=== PATIENT | female | born 1945 | race Caucasian/White ===

== ENCOUNTER 2022-03-12 08:47 | Day surgery (SDC) | payer MEDICARE, OTHER, SELFPAY ==
--- NOTE | 2022-03-11 13:27 | HO.ANESPROP2 ---
Documented by User: Erinn Rodarte NP 03/11/22 13:28 HPI - Anesthesia Eval Consult details Narrative: 76yo F for Colonoscopy PMFSH Past Medical History Medical History (Updated 03/12/22 @ 09:36 by Sherron Correa) Bilateral cataracts Breast cancer GERD (gastroesophageal reflux disease) Torsion of left ovary Surgical History Surgical History (Updated 03/12/22 @ 09:36 by Sherron Correa) H/O colonoscopy H/O endoscopy H/O left mastectomy History of partial hysterectomy Hx of cholecystectomy Hx of tonsillectomy Tubal ligation status Social History Social History Patient Tobacco Use Status: Former Tobacco user Quit Date: 1981 Tobacco use type: Cigarette Years Smoked: 20 Smoked in Last 30 Days: No Use of substances other than those prescribed or required for medical reasons: No Are you DNR?: No Advance Directives: No Advance Directives Information Provided: Yes Meds Allergies Allergy/AdvReac Type Severity Reaction Status Date / Time codeine Allergy Rash Verified 03/12/22 09:26 Home Medications Medication Instructions Recorded Confirmed Last Taken Type Calcium 500 1 cap PO DAILY 03/11/22 03/12/22 Unknown History Probiotic 1 tab PO DAILY 03/11/22 03/12/22 Unknown History Stool Softener 100 mg PO DAILY 03/11/22 03/12/22 Unknown History Vitamin C 500 mg PO DAILY 03/11/22 03/12/22 Unknown History Vitamin D3 25 mcg PO DAILY 03/11/22 03/12/22 Unknown History cyclosporine 0.05 % eye drops in a 1 drp ophthalmic (eye) BID 03/11/22 03/12/22 Unknown History dropperette (Restasis) famotidine 20 mg tablet 1 tab PO DAILY PRN acid reflux 03/11/22 03/12/22 Unknown History magnesium citrate 100 mg PO DAILY 03/11/22 03/12/22 Unknown History oregano oil 1,500 mg capsule 3,000 mg PO DAILY 03/11/22 03/12/22 Unknown History vitamin B complex 1 tab PO DAILY 03/11/22 03/12/22 Unknown History Exam Exam Date and Time: March 11, 20221326 Assessment and Plan Assessment Anesthesia Assessment: Chart Reviewed Documented by User: Jane Johnson MD 03/12/22 10:35 [facility] Past Medical History Medical History (Updated 03/12/22 @ 09:36 by Sherron Correa) Bilateral cataracts Breast cancer GERD (gastroesophageal reflux disease) Torsion of left ovary Family History Family history of problems with anesthesia: No Surgical History Surgical History (Updated 03/12/22 @ 09:36 by Sherron Correa) H/O colonoscopy H/O endoscopy H/O left mastectomy History of partial hysterectomy Hx of cholecystectomy Hx of tonsillectomy Tubal ligation status History of Problems with Anesthesia: No Social History Social History Patient Tobacco Use Status: Former Tobacco user Quit Date: 1981 Tobacco use type: Cigarette Years Smoked: 20 Smoked in Last 30 Days: No Use of substances other than those prescribed or required for medical reasons: No Are you DNR?: No Advance Directives: No Advance Directives Information Provided: Yes Meds Allergies Allergy/AdvReac Type Severity Reaction Status Date / Time codeine Allergy Rash Verified 03/12/22 09:26 Home Medications Medication Instructions Recorded Confirmed Last Taken Type Calcium 500 1 cap PO DAILY 03/11/22 03/12/22 Unknown History Probiotic 1 tab PO DAILY 03/11/22 03/12/22 Unknown History Stool Softener 100 mg PO DAILY 03/11/22 03/12/22 Unknown History Vitamin C 500 mg PO DAILY 03/11/22 03/12/22 Unknown History Vitamin D3 25 mcg PO DAILY 03/11/22 03/12/22 Unknown History cyclosporine 0.05 % eye drops in a 1 drp ophthalmic (eye) BID 03/11/22 03/12/22 Unknown History dropperette (Restasis) famotidine 20 mg tablet 1 tab PO DAILY PRN acid reflux 03/11/22 03/12/22 Unknown History magnesium citrate 100 mg PO DAILY 03/11/22 03/12/22 Unknown History oregano oil 1,500 mg capsule 3,000 mg PO DAILY 03/11/22 03/12/22 Unknown History vitamin B complex 1 tab PO DAILY 03/11/22 03/12/22 Unknown History Exam Airway Mallampati Class: II TM Dist: >3cm Partial: Upper Heart: rr Lungs: Cta Assessment and Plan Assessment Anesthesia Assessment: Anesthesia Plan Discussed Final Anesthetic Review Family History of Problems with Anesthesia: No History of Problems with Anesthesia: No NPO: Yes ASA Class: II Final Preanesthetic Review: No Changes in Pt Med Stat Patient Risk: Low Procedure Risk: Low Anesthetic Plan Anesthetic Plan: MAC: Disposition: Standard PACU
[2022-03-12 09:26] VITALS: BMI 24.7
[2022-03-12 09:29] VITALS: BP 149/70; PULSE 60; RESP 16; TEMP 36.6; O2SAT 100
[2022-03-12] MEDS: Lactated Ringers 1,000 ML 100 ML IVCONT (09:50)
--- NOTE | 2022-03-12 10:25 | MHC.SHP ---
Pre-Procedural Eval Section A Date of Service: 03/12/22 The patient is an INPATIENT: No Changes since office visit: No Cold of Flu in the past 2 weeks, No New Medical Problems, No Changes in Medication and No Patient answered all questions The History & Physical has been completed within 30 days and I have reviewed it.: Yes Section B Chief Complaint: Other specified symptoms and signs involving the d Allergies: Allergies Allergy/AdvReac Type Severity Reaction Status Date / Time codeine Allergy Rash Verified 03/12/22 09:26 Plan I have reviewed the history and physical and performed a pertinent physical examination on my patient. No changes have occurred unless specified.
--- NOTE | 2022-03-12 11:11 | PM.OP ---
Brief Operative Note Date of Service: 03/12/22 Pre-op diagnosis: change in bowels Post-op diagnosis: same Surgeon: Schuyler Cheng Anesthesia: MAC Was an Pediatric Neurologist used for this Procedure?: No Estimated blood loss (mL): 2 Pathology: other Condition: stable Disposition: PACU
[2022-03-12 11:14] VITALS: BP 98/35; PULSE 60; RESP 16; TEMP 36.7; O2SAT 97
[2022-03-12 11:29] VITALS: BP 131/59; PULSE 60; RESP 16; TEMP 36.7; O2SAT 97
--- NOTE | 2022-03-12 22:40 | OP_ITS ---
SURGEON: Schuyler Cheng MD INDICATIONS: Change in bowel habits. PREOPERATIVE DIAGNOSIS: POSTOPERATIVE DIAGNOSIS: PROCEDURE PERFORMED: Colonoscopy to the terminal ileum with biopsy. ESTIMATED BLOOD LOSS: COMPLICATIONS: ANESTHESIA: Monitored anesthesia care. ASSISTANTS: SPECIMENS: DESCRIPTION OF PROCEDURE: The procedure was performed on 03/12/2022. History and physical was performed and the risks and benefits of the procedure were explained to the patient. Informed consent was obtained. The patient was placed in the left lateral decubitus position. A digital rectal exam was performed and was found to be normal. The Olympus pediatric videocolonoscope was introduced into the rectum and advanced to the cecum without difficulty. The cecum was identified by transillumination, palpation, and identification of ileocecal valve. Examination was performed. The scope was removed. She tolerated the procedure well and was taken to recovery room in stable condition. FINDINGS: The terminal ileum was normal. Visualized colonic mucosa was normal. In the cecum, near the appendiceal orifice was a less than 5 mm sessile polyp, which was removed with biopsy forceps. The 2nd polyp measuring less than 5 mm was removed from the rectum with the biopsy forceps. No other polyps were identified. Retroflexed examination showed small internal hemorrhoids. The quality of the prep was good. Random sigmoid biopsies were obtained because of the patient's change in bowel habits. IMPRESSION: Colon polyps. RECOMMENDATION: Follow up with the biopsy results. MD VERONICA Thompson/[place] / [id number]
== END 2022-03-12 12:17 | disposition home or self-care (01) ==
PROVIDERS: PCP Nurse Practitioner Family; Visit Provider Internal Medicine Gastroenterology
PROC: 0DJD8ZZ Inspection of Lower Intestinal Tract, Via Natural or Artificial Opening Endoscopic (ICD-10-PCS; CPT 45378; principal; 2022-03-12 10:10)
DX: R19.8 Other specified symptoms and signs involving the digestive system and abdomen (principal); K63.5 Polyp of colon; K62.1 Rectal polyp; K64.8 Other hemorrhoids; K21.9 Gastro-esophageal reflux disease without esophagitis; Z79.899 Other long term (current) drug therapy; Z88.5 Allergy status to narcotic agent
CPT/HCPCS: 45380; 88305

== ENCOUNTER 2024-02-04 12:07 | Day surgery (SDC) | payer MEDICARE, OTHER, SELFPAY ==
[2024-02-02 11:41] VITALS: BMI 24.6
--- NOTE | 2024-02-03 08:33 | HO.ANESPROP2 ---
Documented by User: Erinn Rodarte NP 02/03/24 08:34 HPI - Anesthesia Eval Consult details Narrative: 78yo F for Upper Endoscopy PMFSH Past Medical History Medical History Allergic rhinitis Carpal tunnel syndrome Hyperlipidemia Osteopenia Osteoarthritis GERD (gastroesophageal reflux disease) Bilateral cataracts Torsion of left ovary Breast cancer Family History Family history of problems with anesthesia: No Surgical History Surgical History Hx of cataract surgery Tubal ligation status History of partial hysterectomy Hx of tonsillectomy H/O endoscopy H/O colonoscopy Hx of cholecystectomy H/O left mastectomy History of Problems with Anesthesia: No Social History Social History Are you a primary health care attorney to a significant other at home: No Do you presently have visiting nurse or other home services: No Patient Tobacco Use Status: Former Tobacco user Tobacco use type: Cigarette Years Smoked: 20 Use of substances other than those prescribed or required for medical reasons: No Have you been hit, kicked, punched, or otherwise hurt by someone within the past year? If so, by whom?: No Are you DNR?: No Advance Directives: No Advance Directives Information Provided: Yes Recently lost weight without trying: No Nutrition Risks: No Nutritional Risk Patient : No Meds Allergies Allergy/AdvReac Type Severity Reaction Status Date / Time codeine Allergy Rash Verified 02/04/24 12:28 naproxen [From Aleve] Allergy Unknown Verified 02/04/24 12:28 Home Medications ?Medication ?Instructions ?Recorded ?Confirmed ?Last Taken ?Type Calcium 500 1 cap PO DAILY 03/11/22 02/02/24 Unknown History Probiotic 1 tab PO DAILY 03/11/22 02/02/24 Unknown History Stool Softener 100 mg PO DAILY PRN Constipation 03/11/22 02/02/24 Unknown History Vitamin C 500 mg PO DAILY 03/11/22 02/02/24 Unknown History cyclosporine 0.05 % eye drops in a 1 drp ophthalmic (eye) BID 03/11/22 02/02/24 Unknown History dropperette (Restasis) famotidine 20 mg tablet 1 tab PO BID acid reflux 03/11/22 02/04/24 02/04/24 History magnesium citrate 100 mg PO DAILY 03/11/22 02/02/24 Unknown History oregano oil 1,500 mg capsule 3,000 mg PO DAILY 03/11/22 02/02/24 Unknown History vitamin B complex 1 tab PO DAILY 03/11/22 02/02/24 Unknown History fexofenadine 180 mg tablet 180 mg PO DAILY 02/02/24 02/04/24 02/04/24 History (Isa Allergy) multivitamin 1 tab PO DAILY 02/02/24 02/02/24 Unknown History omega 3-ctz-tcc-fish oil 1,200 mg 1 cap PO DAILY 02/02/24 02/02/24 Unknown History (144 mg-216 mg) capsule (Fish Oil) Exam Height,Weight and Vital Signs: Height 5 ft 3 in Weight 63.049 kg Assessment and Plan Assessment Anesthesia Assessment: Chart Reviewed Final Anesthetic Review Family History of Problems with Anesthesia: No History of Problems with Anesthesia: No Documented by User: Rachel August MD 02/04/24 13:32 [facility] Past Medical History Medical History Allergic rhinitis Carpal tunnel syndrome Hyperlipidemia Osteopenia Osteoarthritis GERD (gastroesophageal reflux disease) Bilateral cataracts Torsion of left ovary Breast cancer Family History Family history of problems with anesthesia: No Surgical History Surgical History Hx of cataract surgery Tubal ligation status History of partial hysterectomy Hx of tonsillectomy H/O endoscopy H/O colonoscopy Hx of cholecystectomy H/O left mastectomy History of Problems with Anesthesia: Yes (PONV with major surgery ) Social History Social History Are you a primary health care attorney to a significant other at home: No Do you presently have visiting nurse or other home services: No Patient Tobacco Use Status: Former Tobacco user Tobacco use type: Cigarette Years Smoked: 20 Use of substances other than those prescribed or required for medical reasons: No Have you been hit, kicked, punched, or otherwise hurt by someone within the past year? If so, by whom?: No Are you DNR?: No Advance Directives: No Advance Directives Information Provided: Yes Recently lost weight without trying: No Nutrition Risks: No Nutritional Risk Patient : No Meds Allergies Allergy/AdvReac Type Severity Reaction Status Date / Time codeine Allergy Rash Verified 02/04/24 12:28 naproxen [From Aleve] Allergy Unknown Verified 02/04/24 12:28 Home Medications ?Medication ?Instructions ?Recorded ?Confirmed ?Last Taken ?Type Calcium 500 1 cap PO DAILY 03/11/22 02/02/24 Unknown History Probiotic 1 tab PO DAILY 03/11/22 02/02/24 Unknown History Stool Softener 100 mg PO DAILY PRN Constipation 03/11/22 02/02/24 Unknown History Vitamin C 500 mg PO DAILY 03/11/22 02/02/24 Unknown History cyclosporine 0.05 % eye drops in a 1 drp ophthalmic (eye) BID 03/11/22 02/02/24 Unknown History dropperette (Restasis) famotidine 20 mg tablet 1 tab PO BID acid reflux 03/11/22 02/04/24 02/04/24 History magnesium citrate 100 mg PO DAILY 03/11/22 02/02/24 Unknown History oregano oil 1,500 mg capsule 3,000 mg PO DAILY 03/11/22 02/02/24 Unknown History vitamin B complex 1 tab PO DAILY 03/11/22 02/02/24 Unknown History fexofenadine 180 mg tablet 180 mg PO DAILY 02/02/24 02/04/24 02/04/24 History (Isa Allergy) multivitamin 1 tab PO DAILY 02/02/24 02/02/24 Unknown History omega 5-bhz-oio-fish oil 1,200 mg 1 cap PO DAILY 02/02/24 02/02/24 Unknown History (144 mg-216 mg) capsule (Fish Oil) Exam Height,Weight and Vital Signs: Height 5 ft 3 in Weight 63.049 kg Vital Signs Temp Pulse Resp BP Pulse Ox O2 Del Method 02/04/24 13:00 97.2 F 74 12 120/65 98 Room Air Airway Mallampati Class: II TM Dist: >3cm Neck ROM: Full Partial: Upper Loose/Missing/Broken Teeth: Yes (Partial dentures. Denies broken or loose teeth ) Heart: RRR Lungs: CTAB Assessment and Plan Assessment Anesthesia Assessment: Anesthesia Plan Discussed and Chart Reviewed Final Anesthetic Review Family History of Problems with Anesthesia: No History of Problems with Anesthesia: Yes (PONV with major surgery ) NPO: Yes ASA Class: II Final Preanesthetic Review: No Changes in Pt Med Stat, Meds/Allgs Chart Reviewed, Consent Obtained/Reviewed and Anes Risks/Benef Reviewed Patient Risk: Low Procedure Risk: Low Assessment/Block/Sedation in SS: Assess/Block/Sedation-SS Anesthetic Plan Anesthetic Plan: TIVA Disposition: Standard PACU
[2024-02-04 12:31] VITALS: BMI 24.1
[2024-02-04] MEDS: Lactated Ringers 1,000 ML 100 ML IVCONT (12:49)
[2024-02-04 13:00] VITALS: BP 120/65; PULSE 74; RESP 12; TEMP 36.2; O2SAT 98
--- NOTE | 2024-02-04 13:05 | MHC.SHP ---
Pre-Procedural Eval Section A - 24 Hr Update-Section A only Date of Service: 02/04/24 The patient is an INPATIENT: No Changes since office visit: No Cold of Flu in the past 2 weeks, No New Medical Problems, No Changes in Medication and No Patient answered all questions The patient has been examined within 24 hours of the surgical procedure. The History & Physical has been completed within 30 days and I have reviewed it.: Yes Section B - Complete if H&P > 30 days Chief Complaint: Gastro-esophageal reflux disease without esophagit Allergies: Allergies Allergy/AdvReac Type Severity Reaction Status Date / Time codeine Allergy Rash Verified 02/04/24 12:28 naproxen [From Aleve] Allergy Unknown Verified 02/04/24 12:28 Plan I have reviewed the history and physical and performed a pertinent physical examination on my patient. No changes have occurred unless specified. Time Spent With Patient Time: Total time managing care of this patient today ____ minutes.
[2024-02-04 13:30] VITALS: BP 93/44; PULSE 70; RESP 16; TEMP 36.1; O2SAT 96
--- NOTE | 2024-02-04 13:43 | OP_ITS ---
DATE OF SERVICE: 02/04/2024 SURGEON: Schuyler Cheng MD INDICATIONS: Gastroesophageal reflux disease. PREOPERATIVE DIAGNOSIS: POSTOPERATIVE DIAGNOSIS: PROCEDURE PERFORMED: Upper endoscopy with biopsy. ESTIMATED BLOOD LOSS: COMPLICATIONS: ANESTHESIA: Monitored anesthesia care. ASSISTANTS: SPECIMENS: DESCRIPTION OF PROCEDURE: A history and physical were performed. The risks and benefits of the procedure were explained to the patient and informed consent was obtained. The patient was placed in the left lateral decubitus position. The Olympus video gastroscope was introduced into the esophagus, stomach, and duodenum. Examination was performed, and the scope was removed. She tolerated the procedure well and was taken to recovery in stable condition. FINDINGS: 1. Esophagus: The esophagus was normal. There was an irregular EG junction that was biopsied. 2. Stomach: The stomach showed no evidence of masses, ulcers, or polyps. Antral biopsies were obtained to evaluate for H pylori. 3. Duodenum, the bulb and 2nd portion were normal. IMPRESSION: Gastroesophageal reflux disease. RECOMMENDATION: Follow up the biopsy results. MD VERONICA Thompson/[place] / [id number]
[2024-02-04 13:45] VITALS: BP 98/53; PULSE 62; RESP 16; TEMP 36.1; O2SAT 96
== END 2024-02-04 14:12 | disposition home or self-care (01) ==
PROVIDERS: PCP Internal Medicine; Visit Provider Internal Medicine Gastroenterology
PROC: 0DJ08ZZ Inspection of Upper Intestinal Tract, Via Natural or Artificial Opening Endoscopic (ICD-10-PCS; CPT 43235; principal; 2024-02-04 13:00)
DX: K22.89 Other specified disease of esophagus (principal); K21.9 Gastro-esophageal reflux disease without esophagitis; E78.5 Hyperlipidemia, unspecified; Z85.3 Personal history of malignant neoplasm of breast
CPT/HCPCS: 43239; 88305; 88313; 88342; J1100; J1596; J2003; J2704